=== PATIENT | male | born 1990 | race Caucasian/White ===

== ENCOUNTER 2024-10-15 22:58 | Emergency (ER) | payer OTHER, SELFPAY ==
[2024-10-15 22:59] VITALS: BP 187/111; PULSE 88; RESP 20; TEMP 36.4; O2SAT 100; BMI 34.8
--- NOTE | 2024-10-15 23:06 | RAD_ITS ---
PROCEDURE: FINGER(S) MIN 2 VIEWS 10/15/2024 REASON FOR EXAM: INJURY/PAIN TECHNIQUE: FINGER(S) MIN 2 VIEWS COMPARISON: None. FINDINGS: Acute comminuted/impacted fracture of the 2nd distal phalanx tuft, with distal blunting. No additional acute fracture or dislocation is seen. Anatomic alignment. Preserved joint spaces. Soft tissue swelling and laceration injury to the tip of the 2nd digit. No radiopaque foreign body. RAD/Finger(s) Min 2 Views IMPRESSION: Soft tissue swelling and laceration injury to the tip of the 2nd digit, with [place] comminuted impacted fracture of the distal phalanx tuft which appears to be crushed or sheared off. Reading Location: [id number]
--- NOTE | 2024-10-15 23:07 | EX.ED.GENINJ ---
HPI History of Present Illness Chief Complaint: Laceration Detail of Chief Complaint: Question injury with partial amputation right index finger Informant: patient Onset/Context/Timing Onset: Today and Hours Mechanism/Context: Blunt Injury Location of pain/injuries: Right hand (Right index finger) Quality of Pain: Dull and Aching Location: Right index finger Current Severity: Mild Maximum Severity: Moderate Worsened by: Pressure Relieved by: Nothing Associated Symptoms Associated Symptoms: Positive for Loss of function; Negative for Parasthesias, Weakness or Inability to ambulate Narrative Narrative: Patient is a 34-year-old [facility] male who presents with partial amputation of his right index finger. He got it caught on the fence. He states it would not stop bleeding so he put a Band-Aid over it and immersed it in kerosene. He arrives with a glove on. His tetanus is unknown. He has no antibiotic allergies. He denies paresthesia, anesthesia or motor weakness. Tetanus Immunization: Unknown Prior similar symptoms: No Recent Illness/Hospitalization: No PFSH PFSH Medical History no medical history no medical history Home Medications ?Medication ?Instructions ?Recorded ?Last Taken ?Type cephalexin 500 mg capsule 500 mg PO Q6 #16 CAPSULES 10/16/24 Unknown Rx Allergy/AdvReac Type Severity Reaction Status Date / Time No Known Allergies Allergy Verified 10/15/24 22:59 Family History no significant family his Surgical History no surgical history Social History Smoking Status: Never smoker ROS ROS ED Constitutional Constitutional ED: Denies chills, fever(s), subjective, sweats or weight loss Gastrointestinal Gastrointestinal: Denies nausea Musculoskeletal Musculoskeletal: Reports other Details: Partial amputation right index finger with nailbed injury ; Denies arthralgias or myalgias Integumentary Reports other Details: Laceration over the distal phalanx of the right index finger and nailbed injury with partial avulsion of the nail Neurologic Neurologic: Denies paresthesias or weakness Hematologic/Lymphatic Hematologic/Lymphatic: Denies easy bleeding or easy bruising EXAM Physical Exam Const Vital Signs: 10/15/24 22:59 10/15/24 23:58 10/16/24 00:00 Temperature 97.6 F L Temperature Source Temporal Pulse Rate 88 78 78 Respiratory Rate 20 H 18 18 Blood Pressure 187/111 H 179/107 H Blood Pressure Mean 136 131 Pulse Ox 100 96 96 Oxygen Delivery Method Room Air Room Air Room Air Positive well nourished and well developed General Appearance ED: well developed HEENT HEENT Narrative: Normocephalic. Ears normal. Nares patent. atraumatic Eyes PERRL and EOMs intact bilaterally Resp normal respiratory effort Cardio regular rhythm Rate: regular rate Extremity Negative for normal to inspection Extremity Narrative: Patient has extension and flexion at the DIP and PIP joint of his right index finger. There is a partially avulsed nail of the index finger. There is a partial amputation. Will need to assess for to point discrimination. Difficult assess capillary refill since his skin is dark from him immersing it in kerosene. She is General Extremety ED: Yes deformity and tenderness General Extremity: deformity Neuro oriented x3 and CN's II-XII intact bilaterally Neuro Narrative: Median, radial and ulnar function intact. Psych mental status grossly normal and thought process normal Skin Skin Narrative: Previously described PROC Procedures Other Procedures Procedure(s): 2 point discrimination is abnormal on the radial side of his right index finger. The right index finger was anesthetized by digital block using 4 cc of 1% lidocaine. The nail was removed since it was partially avulsed. This was removed gently to prevent complete amputation of the digit. The wound was irrigated with 250 cc of normal saline. The skin was closed using 5-0 Ethilon. 3 stitches was placed on the radial and ulnar side. Total length 2 cm. The nailbed was closed using 5-0 Vicryl. 3 simple interrupted sutures was placed. The nail was then sutured back in place using 4-0 Vicryl. MDM MDM MDM Narrative Medical decision making narrative: X-ray was obtained to determine if he has a tuft fracture versus a shaft fracture. Doubt dislocation. Also determined there is any foreign body. Will need to assess 2 point discrimination prior to anesthetization. He will require repair and referral to plastic/hand. Radiography Chest X-Ray - ED: Read by ED Physician (Three-view x-ray of his right index finger reveals that the distal portion of the phalanx has been avulsed. There is obvious soft tissue defect. There is no other abnormality noted. This independent reviewed interpreted by me.) Diagnostic Testing: Clinical Impression(s) from Imaging Studies Finger X-Ray 10/15/24 23:06 IMPRESSION: Soft tissue swelling and laceration injury to the tip of the 2nd digit, with acute comminuted impacted fracture of the distal phalanx tuft which appears to be crushed or sheared off. Reading Location: [facility] Discharge Plan Triage Chief Complaint: Laceration ED Provider: Ángel King Dx/Rx/DC Orders Clinical Impression: Open fracture of distal phalanx of right index finger, Avulsion of nail of right little finger, Laceration of right index finger with damage to nail, Elevated blood-pressure reading without diagnosis of hypertension Instructions: ED Fracture, Finger, Open, ED Hypertension, To Be Confirmed Prescriptions: New cephalexin 500 mg capsule 500 mg PO Q6 Qty: 16 0RF Primary Care Provider: Richi Gomez Referrals: Shawn Johnson MD [Med Staff - Active Staff] - 2 Days for wound check Richi Gomez MD [Primary Care Provider] - 1-2 Weeks Activity Restrictions/Additional Instructions: 1. Call Dr. Bacon office later this morning to be seen in 2 days for wound check, Saturday 2. Take antibiotics until gone 3. Keep finger clean and dry for the next 48 to 72 hours. 4. You need to follow-up with Dr. Richi Gomez for blood pressure check in 1 to 2 weeks Print Language: [place] Disposition Disposition: Home, Self Care
[2024-10-15] MEDS: Lidocaine 1% (20 ml mdv) 20 ML Vial INFILT (23:11)
[2024-10-15] MEDS: Cefazolin 1 GM/50 ML BAG IV (23:29)
[2024-10-15 23:58] VITALS: BP 179/107; PULSE 78; RESP 18; O2SAT 96
[2024-10-16] VITALS: PULSE 78; RESP 18; O2SAT 96
[2024-10-16 01:03] VITALS: BP 156/104; PULSE 65; RESP 18; TEMP 36.8; O2SAT 99
== END 2024-10-16 01:05 | disposition home or self-care (01) ==
PROVIDERS: Emergency Provider Emergency Medicine; PCP Family Medicine; Visit Provider Emergency Medicine
DX: S62.660B Nondisplaced fracture of distal phalanx of right index finger, initial encounter for open fracture (principal); R03.0 Elevated blood-pressure reading, without diagnosis of hypertension; S61.306A Unspecified open wound of right little finger with damage to nail, initial encounter; W26.8XXA Contact with other sharp object(s), not elsewhere classified, initial encounter
CPT/HCPCS: 11760; 73140; 90471; 90715; 96365; 96366; 99284; A4216